=== PATIENT | male | born 1970 | race Caucasian/White ===

== ENCOUNTER 2024-12-31 08:55 | Outpatient (RCR) | payer OTHER, SELFPAY ==
[2024-12-31 09:07] LABS: % Basophils 0.9 % (0-2); % Eosinophils 2.1 % (0-6); % Immature Granulocytes 0.1 % (0-0.5); % Lymphocytes 20.4 % (20.5-51.1); % Monocytes 10.2 % (1.7-9.3); % Neutrophils 66.3 % (42.2-75.2); Absolute Basophils 0.1 10^3/uL (0-0.2); Absolute Eosinophils 0.2 10^3/uL (0-0.7); Absolute Lymphocytes 1.7 10^3/uL (1.2-3.4); Absolute Monocytes 0.8 10^3/uL (0.1-0.6); Absolute Neutrophils 5.4 10^3/uL (1.4-6.5); Hematocrit 56.5 % (39.0-52.0); Hemoglobin 19.4 g/dL (13.0-18.0); Mean Corp Hgb Conc. 34.3 g/dL (33.0-37.0); Mean Corpuscular Hgb 30.3 pg (27.0-31.0); Mean Corpuscular Volume 88.1 fL (80.0-94.0); Mean Platelet Volume 10.7 fL (7.4-10.4); Platelet Count 225 10^3/uL (130-400); Red Blood Cell Count 6.41 10^6/uL (4.70-6.10); Red Cell Dist. Width 13.5 % (11.5-14.5); White Blood Cell Count 8.2 10^3/uL (4.8-10.8)
[2024-12-31 09:14] VITALS: BP 175/109
[2024-12-31 09:23] VITALS: BP 156/100
[2024-12-31 09:45] VITALS: BP 158/98
[2024-12-31 09:56] VITALS: BP 148/98
== END 2024-12-31 23:59 | disposition home or self-care (01) ==
LOC: OID 08:55
PROVIDERS: ATTENDING PHYSICIAN Urology; FAMILY PHYSICIAN Family Medicine
DX: D75.1 Secondary polycythemia (principal)
CPT/HCPCS: 36415; 85025; 99195

== ENCOUNTER 2025-02-25 09:36 | Outpatient (RCR) | payer OTHER, SELFPAY ==
[2025-02-25 10:00] VITALS: BP 149/94
[2025-02-25 10:28] VITALS: BP 140/93
[2025-02-25 10:32] VITALS: BP 149/96
== END 2025-03-02 23:59 | disposition home or self-care (01) ==
LOC: OID 09:36
PROVIDERS: ATTENDING PHYSICIAN Urology; FAMILY PHYSICIAN Family Medicine
DX: D75.1 Secondary polycythemia (principal)
CPT/HCPCS: 99195

== ENCOUNTER 2025-03-12 06:43 | Day surgery (SDC) | payer OTHER, SELFPAY ==
[2025-02-25 09:10] LABS: Hematocrit 55.5 % (39.0-52.0); Hemoglobin 18.7 g/dL (13.0-18.0); Mean Corp Hgb Conc. 33.7 g/dL (33.0-37.0); Mean Corpuscular Volume 89.8 fL (80.0-94.0); Nucleated Red Blood Cells % 0 % (-); Platelet Count 363 10^3/uL (130-400); Red Cell Dist. Width 13.7 % (11.5-14.5)
[2025-02-25 11:01] LABS: Blood Urea Nitrogen 15 mg/dl (9-20); Calcium 10.2 mg/dl (8.4-10.2); Carbon Dioxide 29 mmol/L (22-30); Chloride 103 mmol/L (98-107); Glucose 90 mg/dl (70-99); Potassium 5.5 mmol/L (3.5-5.1); Sodium 139 mmol/L (135-145); eGFR > 60.00
--- NOTE | 2025-03-04 15:21 | PTCARENOTE ---
Patients 02/25 ECG abnormal- reviewed by Dr. Schreiber- no additional interventions required
--- NOTE | 2025-03-05 14:47 | PTCARENOTE ---
Berna in office made aware of K 5.5.
--- NOTE | 2025-03-10 13:54 | PTCARENOTE ---
Patients 02/25 potassium 5.5- reviewed by Candie- no additional interventions required
[2025-03-12] VITALS (13 sets, daily range): BP systolic 142–169; BP diastolic 65–111; BMI 25.7
[2025-03-12] MEDS: NORMOSOL-R/PLASMALYTE-A 1000 IV ×2 (10:26→19:25)
--- NOTE | 2025-03-12 17:36 | W.IMMPOSTOP ---
Surgical Immed Post Op Note
-
Primary Surgeon: Bayronfer
Assisting Surgeon: -
Pre-op Diagnosis: Prostate cancer
Post-op Diagnosis: same
Procedure Performed: RALP/PLND
Anesthesia Type: gen
Specimen / Cultures: prostate
Estimated Blood Loss: 50cc
Complications: none
Operative Findings: n/a
[2025-03-12 17:59] LABS: Hematocrit 49.2 % (39.0-52.0); Hemoglobin 16.6 g/dL (13.0-18.0)
[2025-03-12 18:29] LABS: Blood Urea Nitrogen 13 mg/dl (9-20); Calcium 8.9 mg/dl (8.4-10.2); Carbon Dioxide 24 mmol/L (22-30); Chloride 103 mmol/L (98-107); Estimated Creatinine Clearance 85 ml/min; Glucose 162 mg/dl (70-99); Potassium 4.8 mmol/L (3.5-5.1); Sodium 136 mmol/L (135-145); eGFR > 60.00
--- NOTE | 2025-03-12 18:35 | PTCARENOTE ---
Pt arrived to 2S in bed. Full assessment completed. Pt A+Ox3, drowsy but easily arouses to verbal stimuli. Lungs diminished to auscultation, pt with shallow breaths. Heart regular, + DP and radial pulses B/L. Abdomen soft, tender to palpation,
hypoactive. Pt with indwelling urinary catheter, pink tinged urine draining, catheter clean and intact. Abdominal incisions C/D/I, glued and XAVIER. Bed locked and in the lowest position, safety maintained. Pt educated to carlie for assistance with
ambulation, verbalized understanding. Oriented to room and call flannery, family at bedside.
[2025-03-12] MEDS: LOVENOX 40 MG SC (19:26)
[2025-03-12] MEDS: TORADOL 15 MG IV ×2 (19:26→23:18)
[2025-03-12] MEDS: SENOKOT 17.2 MG PO (19:26)
[2025-03-12] MEDS: PRAVACHOL 10 MG PO (21:29)
[2025-03-13] MEDS: TYLENOL 650 MG PO (01:21)
[2025-03-13] MEDS: NORMOSOL-R/PLASMALYTE-A 1000 IV (02:50)
[2025-03-13 03:00] VITALS: BP 135/95
[2025-03-13] MEDS: DETROL LA 4 MG PO (04:43)
[2025-03-13] MEDS: MORPHINE SULFATE 4 MG IV ×2 (04:53→08:10)
[2025-03-13] MEDS: TORADOL 15 MG IV ×4 (05:18→23:22)
[2025-03-13] MEDS: VALIUM INJECTION 5 MG IV (05:30)
--- NOTE | 2025-03-13 05:39 | PTCARENOTE ---
Addendum entered by Korina Millard RN 03/13/25 05:40:
pt sat up in bed and started experiencing 10/10 lower abd pain with urine looking dark red. Administered PRN detrol at 0443. Irrigated with 10cc of sterile 0.9 NaCl and met resistance. Irrigated again with 30cc, reattached bag with minimal output.
Pt still extremely uncomfortable. Administered PRN morphine at 0453.
Rechecked pt at 0502 still with minimal to no urine output in salazar bag/tubing and still uncomfortable. TT Juan Pablo and instructed to vigorously irrigate with larger volumes and 1x IV valium dose ordered. Scheduled IV toradol administered at
0518. IV valium administered at 0530.
Irrigated at 0535 with 100cc of sterile Nacl and got 100cc returned. Urine color light pink. Reattached to salazar bag. Pt feeling more comfortable. Will continue to monitor.
Original Note:
pt sat up in bed and started experiencing 10/10 lower abdominal pain with urine looking dark red. Administered PRN detrol at 0443.
Irrigated with 10cc of sterile 0.9 NaCl and met resistance. Irrigated again with 30cc and urine was trickling out of catheter.
I rehooked up the bag and there is very little output. Pt extremely uncomfortable. I did administer 4mg of IV morphine at 0453. Pt saying pain is still present. Thank
[2025-03-13 07:20] VITALS: BP 138/78
[2025-03-13 08:06] LABS: Hematocrit 39.1 % (39.0-52.0); Hemoglobin 13.3 g/dL (13.0-18.0); Mean Corp Hgb Conc. 34.0 g/dL (33.0-37.0); Mean Corpuscular Volume 89.9 fL (80.0-94.0); Platelet Count 364 10^3/uL (130-400); Red Cell Dist. Width 13.5 % (11.5-14.5)
--- NOTE | 2025-03-13 08:38 | W.PN.URO.CBU ---
Today's Communication / Plan
-
Pain control
Reg diet
OOB if able
Assessment / Plan
-
54M with prostate cancer s/p RALP/PLND
- Significant abdominal pain/bladder spasms overnight
- Unclear if salazar drainage was an issue but seemed to irrigate okay overnight - now draining well
- Continue PRN pain control
- Okay to continue diet - no nausea and patient asking about eating despite pain
- Trend vitsls and symptoms this AM
Diagnosis
-
Date of Service: March 13, 2025
-
Patient Diagnosis:
Prostate cancer
Post Op Day: 1 s/p RALP/PLND
Subjective
-
Significant abdominal pain and bladder spasms overnight
Catheter was flushed without difficulty and drained what was instilled
Still with significant pain when sitting up this morning
Objective
-
Vital Signs
Temp Pulse Resp BP Pulse Ox
98.8 F 107 18 135/95 98
03/13/25 03:00 03/13/25 03:00 03/13/25 03:00 03/13/25 03:00 03/13/25 03:00
Intake and Output
03/12/25 03/13/25 03/14/25
06:59 06:59 06:59
Intake Total 960 / 960
Output Total 995 / 995
Balance -35 / -35
Intake:
Oral fluids 720 / 720
IV fluids (Total) 100 / 100
normosol 100 / 100
Salazar intermittent irrigation 140 / 140
Output:
Urine, Salazar 995 / 995
Laboratory Results
03/13/25 07:42
Physical Exam
-
General - well developed, well nourished, uncomfortable
Chest - clear
Abdomen - soft, tender, nondistended. Some guarding with palpation. No rebound tenderness
Salazar in place, light pink urine output
Skin - warm & dry with no rash
Neuro - AOx3, no motor deficits
Extremities - no clubbing, no cyanosis, no edema
[2025-03-13 08:52] LABS: Blood Urea Nitrogen 16 mg/dl (9-20); Calcium 8.0 mg/dl (8.4-10.2); Carbon Dioxide 27 mmol/L (22-30); Chloride 103 mmol/L (98-107); Estimated Creatinine Clearance 78 ml/min; Glucose 165 mg/dl (70-99); Potassium 4.5 mmol/L (3.5-5.1); Sodium 134 mmol/L (135-145); eGFR > 60.00
[2025-03-13] MEDS: SENOKOT 17.2 MG PO ×2 (10:35→19:50)
[2025-03-13] MEDS: PERCOCET 5/325 1 TABLET PO (10:40)
[2025-03-13 11:25] VITALS: BP 131/80
--- NOTE | 2025-03-13 12:06 | CM ---
Addendum entered by Pippa Gardiner 03/13/25 14:54:
accepted by [facility] to follow at discharge.
Addendum entered by Pippa Gardiner 03/13/25 13:47:
CM spoke with patient and , following review of PAC data, referral sent to [facility], await confirmation of acceptance.
Original Note:
Patient seen at bedside on . Patient stated that he is in pain and nursing made aware. Patient also stated that he lives with his and family in a 2 story home with no past needs for VN or DME. Patient independent prior to admission of
ADL's and IADL's. Patient PCP is Dr. Franz and he uses the [facility] in [place]. Patient family not at bedside, family to assist per patient. CM will continue to follow for discharge planning needs.
Plan; home with VN vs home with no needs.
[2025-03-13 15:10] VITALS: BP 113/79
[2025-03-13] MEDS: LOVENOX 40 MG SC (17:59)
[2025-03-13] MEDS: PRAVACHOL 10 MG PO (21:44)
[2025-03-13 23:00] VITALS: BP 126/88
[2025-03-14] MEDS: TORADOL 15 MG IV ×2 (05:15→11:19)
[2025-03-14 06:32] LABS: Hematocrit 30.8 % (39.0-52.0); Hemoglobin 10.3 g/dL (13.0-18.0); Mean Corp Hgb Conc. 33.4 g/dL (33.0-37.0); Mean Corpuscular Volume 90.9 fL (80.0-94.0); Platelet Count 307 10^3/uL (130-400); Red Cell Dist. Width 13.8 % (11.5-14.5)
[2025-03-14 06:48] LABS: Blood Urea Nitrogen 20 mg/dl (9-20); Calcium 8.3 mg/dl (8.4-10.2); Carbon Dioxide 30 mmol/L (22-30); Chloride 102 mmol/L (98-107); Estimated Creatinine Clearance 72 ml/min; Glucose 116 mg/dl (70-99); Potassium 4.2 mmol/L (3.5-5.1); Sodium 135 mmol/L (135-145); eGFR > 60.00
[2025-03-14 07:25] VITALS: BP 165/94
[2025-03-14] MEDS: SENOKOT 17.2 MG PO (07:40)
--- NOTE | 2025-03-14 09:35 | W.PN.URO.CBU ---
Today's Communication / Plan
-
Fluid bolus
Repeat HGB
Trend vitals
Possible discharge this afternoon
Assessment / Plan
-
54M with prostate cancer s/p RALP/PLND
- Anemia - HGB drop more than expected with some tachycardia suggests some post op bleeding. Saline bolus this AM and encouraged fluid intake. Repeat HGB this afternoon.
- Significant abdominal pain/bladder spasms post op now resolved
- Continue PRN pain control
- Regular diet
- OOB/ambulate
- DVT ppx
Diagnosis
-
Date of Service: March 14, 2025
-
Patient Diagnosis:
Prostate cancer
Post Op Day: 2 s/p RALP/PLND
Subjective
-
Pain significantly improved
tolerating diet
ambulating
no cp/SOB
No dizziness
Catheter draining well
Objective
-
Vital Signs
Temp Pulse Resp BP Pulse Ox
98.5 F 107 16 165/94 98
03/14/25 07:25 03/14/25 07:25 03/14/25 07:25 03/14/25 07:25 03/14/25 07:25
Intake and Output
03/13/25 03/14/25 03/15/25
06:59 06:59 06:59
Intake Total 960 / 960 240 / 240
Output Total 995 / 995 112 / 1125
Balance -35 / -35 -885 / -885
Intake:
Oral fluids 720 / 720 240 / 240
IV fluids (Total) 100 / 100
normosol 100 / 100
Norris intermittent irrigation 140 / 140
Output:
Urine, Norris 995 / 995 1125 / 1125
Laboratory Results
03/14/25 05:53
Physical Exam
-
General - well developed, well nourished, no acute distress
Chest - clear, unlabored
Abdomen - soft, non-tender, non distended
Norris in place, dark yellow urine
Skin - warm & dry with no rash
Neuro - AOx3, no motor deficits
Extremities - no edema
Incision - clean, dry
Dressing - clean, dry, intact
[2025-03-14] MEDS: NSS 500 IV (09:43)
[2025-03-14 11:35] VITALS: BP 141/81
[2025-03-14 12:51] LABS: Hematocrit 30.1 % (39.0-52.0); Hemoglobin 10.5 g/dL (13.0-18.0)
--- NOTE | 2025-03-14 15:14 | CM ---
Pt dc today with [facility].
No additional support needs identifieid.
== END 2025-03-14 15:30 | disposition home or self-care (01) ==
LOC: SDS 06:43
PROVIDERS: ATTENDING PHYSICIAN Urology
DX: C61 Malignant neoplasm of prostate (principal)
CPT/HCPCS: 38571; 36415; 80048; 85014; 85018; 85025; 85027; 86850; 86900; 86901; 88305; 88307; 88309; 88331; 93005

== ENCOUNTER 2025-03-19 10:27 | Inpatient (IN) | payer OTHER, SELFPAY ==
[2025-03-18 23:33] VITALS: BP 162/98
[2025-03-19] VITALS (11 sets, daily range): BP systolic 110–142; BP diastolic 78–93; BMI 27.2; BMI 26.8
[2025-03-19 01:08] LABS: Hematocrit 32.8 % (39.0-52.0); Hemoglobin 11.1 g/dL (13.0-18.0); Mean Corp Hgb Conc. 33.8 g/dL (33.0-37.0); Mean Corpuscular Volume 89.6 fL (80.0-94.0); Nucleated Red Blood Cells % 0.2 % (-); Platelet Count 501 10^3/uL (130-400); Red Cell Dist. Width 13.6 % (11.5-14.5)
[2025-03-19 01:31] LABS: ALT (SGPT) 26 U/L (0-50); AST (SGOT) 20 U/L (17-59); Albumin 3.8 g/dl (3.5-5.0); Alkaline Phosphatase 48 U/L (38-126); Blood Urea Nitrogen 19 mg/dl (9-20); Calcium 9.3 mg/dl (8.4-10.2); Carbon Dioxide 27 mmol/L (22-30); Chloride 103 mmol/L (98-107); Estimated Creatinine Clearance 93 ml/min; Glucose 135 mg/dl (70-99); Potassium 4.7 mmol/L (3.5-5.1); Sodium 134 mmol/L (135-145); Total Protein 6.1 g/dl (6.3-8.2); eGFR > 60.00
[2025-03-19] MEDS: DILAUDID 1 MG IV (02:53)
[2025-03-19] MEDS: NSS 1000 IV ×3 (02:54→13:17)
[2025-03-19] MEDS: ZOFRAN 4 MG IV ×2 (04:37→06:26)
[2025-03-19] MEDS: PROTONIX IV 40 MG IV (04:37)
--- NOTE | 2025-03-19 04:45 | ED.GENMED ---
History of Present Illness
General
Chief Complaint: Post Operative Problem(s)
Source: patient and previous hospital records (Prostatectomy March 12, discharged to home March 14.)
Exam Limitations: none
Time Seen by Provider: 03/19/25 02:21
Nursing documentation reviewed up to this point in time: agreed with except (Patient complains of right lateral flank pain. Not left.)
History of Present Illness
History of Present Illness:
This is a 54-year-old gentleman with history of prostate cancer, he underwent robotic assisted laparoscopic radical prostatectomy as well as bilateral pelvic lymph node dissection March 12. On postop day 1 noted to have significant abdominal
pain/bladder spasms. He was hospitalized until March 14, due to hemoglobin dropping more than expected as well as some tachycardia suggestive of some postop bleeding. Hemoglobin stabilized to 10.5 on March 14. Norris catheter has been draining clear
to minimally blood-tinged urine. Patient states he was feeling fairly well at the beginning of the week but then yesterday developed some right lower quadrant to right lateral flank pain that is much worse with movement causing spasms of pain that
has gotten much worse today. Right lateral flank pain feels somewhat similar to previous episodes of renal colic. He denies fevers or chills, no nausea or vomiting, no diaphoresis. His appetite has been good. He has been moving his bowels
normally. Taking oxycodone as needed for pain.
Yesterday, Home health nurse noted a large dark purple ecchymotic patch right lateral flank and has marked the edges of the ecchymosis with a pen.
Past History
Past History
ED Past Medical History: Cancer (Prostate cancer), GERD, HTN, Hypercholesterolemia and Other (Kidney stones)
ED Past Surgical History: Orthopedic, Tonsilectomy and Urological (Radical prostatectomy with bilateral lymph node biopsy March 12, 2025)
Social History
Tobacco: Non-smoker
Alcohol: None
Personal:
Living: with family
Employment: Employed
Family History
Family History: Other (Noncontributory)
Phy Exam
Physical Exam
Physical Exam:
GENERAL: 54-year-old gentleman appears stated age, awake and alert, pleasant, appears in no acute distress. Lying Semi-Rivera's on stretcher, resistant to move. Multiple family members are present.
EYE: anicteric
NECK: Supple, nontender, no meningismus, no significant adenopathy.
ENT: oral mucosa is moist. No rhinorrhea.
CARDIAC: Regular rate and rhythm. no murmur.
LUNGS: Clear breath sounds bilaterally, no acute respiratory distress, no wheezes/rales/rhonchi
ABDOMEN: Soft, nondistended, there is a large dark purple ecchymotic area right lateral flank that extends to his right lower quadrant that is markedly tender to palpation. There is a pen marking along the edge of this ecchymotic patch. There is
been no progression of ecchymosis past the pen marking. There is no palpable heat nor erythema. Several lower abdominal surgical port sites are dry and intact. Norris catheter draining clear to minimally blood-tinged urine. Mild right posterior
lateral flank tenderness overlying dark purple ecchymotic area, normoactive BS.
NEUROLOGICAL: Alert and oriented x3, no focal neuro deficits.
SKIN: Warm and dry, normal color, skin intact. No rash.
MUSCULOSKELETAL: No C/C/E. peripheral pulses are full and equal b/l. No palpable tenderness.
PSYCH: Normal and appropriate interaction.
Course
Orders/Labs/Results
Orders:
Orders
03/19/25 00:56
Complete Blood Count/With Diff Urgent
Comment: .
Comprehensive Metabolic Panel Urgent
Comment: .
03/19/25 02:37
0.9% Sodium Chloride 1000 ml [Nss] 1,000 ml IV 250 mls/hr
HYDROmorphone [Dilaudid] 1 mg IV NOW STA
03/19/25 02:39
CT Abd/pelvis W Iv Cont Urgent
Comment:
Reason For Exam: RIGHT FLANK pain-s/p prostatect 03/12. Hematoma R
03/19/25 04:32
Ondansetron Injectable [Zofran] 4 mg .ROUTE .STK-MED ONE
Pantoprazole [Protonix IV] 40 mg .ROUTE .STK-MED ONE
03/19/25 04:37
Ondansetron Injectable [Zofran] 4 mg IV NOW STA
Pantoprazole [Protonix IV] 40 mg IV NOW STA
03/19/25 06:09
Ondansetron Injectable [Zofran] 4 mg IV NOW STA
Sucralfate Suspension [Carafate Suspension] 1 gm PO NOW STA
03/19/25 07:15
Abdomen Xray - 1 View [CR Abdomen - 1 View] Urgent
Comment:
Reason For Exam: right flank pain. concern for hydro on R
Abnormal Lab Results
03/19/25
00:56
WBC 16.1 H 10^3/uL
(4.8-10.8)
RBC 3.66 L 10^6/uL
(4.70-6.10)
Hgb 11.1 L g/dL
(13.0-18.0)
Hct 32.8 L %
(39.0-52.0)
Plt Count 501 H D 10^3/uL
(130-400)
Abs Immat Gran (auto) 0.2 H 10^3/uL
(0-0.05)
Absolute Neuts (auto) 13.3 H 10^3/uL
(1.4-6.5)
Absolute Lymphs (auto) 1.1 L 10^3/uL
(1.2-3.4)
Absolute Monos (auto) 1.3 H 10^3/uL
(0.1-0.6)
Immature Gran % 1.1 H %
(0-0.5)
Neutrophils % 82.4 H %
(42.2-75.2)
Lymphocytes % 6.7 L %
(20.5-51.1)
Sodium 134 L mmol/L
(135-145)
Glucose 135 H mg/dl
(70-99)
Total Bilirubin 1.5 H mg/dl
(0.2-1.3)
Total Protein 6.1 L g/dl
(6.3-8.2)
03/19/25 00:56
03/19/25 00:56
Vital Signs
Initial and Last Documented VS:
Initial Vital Signs
Temp Pulse Resp BP Pulse Ox
98.4 F 114 28 162/98 97
03/18/25 23:33 03/18/25 23:33 03/18/25 23:33 03/18/25 23:33 03/18/25 23:33
Last Documented Vital Signs
Temp Pulse Resp BP Pulse Ox
98.4 F 89 16 139/83 97
03/18/25 23:33 03/19/25 07:02 03/19/25 07:02 03/19/25 07:02 03/19/25 07:02
MDM/Problems Addressed
Differential Diagnosis Includes:
I highly suspect right flank pain is related to large ecchymotic area over right lateral flank to right lower quadrant that appears subcutaneous hematoma in nature, suspect related to recent surgery. Concern for retroperitoneal/intra-abdominal
hematoma.
Less likely ureteric stone.
He is afebrile and otherwise remains hemodynamically stable.
Labs thus far reveal mildly elevated white blood cell count of 16. Hemoglobin of 11.1 which has trended up from previous.
Chemistries are unremarkable. Normal renal function.
Will medicate for pain and check CT abdomen pelvis with IV contrast.
Chronic conditions affecting care: Previous abdomnial surgery (Recent prostatectomy) and Cancer
*Radiology
Radiology exam reviewed: radiology read reviewed
*Pulse Oximetry
SaO2: 94
Oxygen Mode of Delivery: Room air
Patient hypoxic: no
*Critical Care Note
Total Time (30-74mins, 75-104mins- exclusive of procedures): Not Applicable
Update Note
Update Note:
CAT scan shows mild right hydroureteronephrosis without obstructing stone. Bladder is decompressed.
Subcutaneous emphysema along the abdomen and chest likely secondary to recent surgery.
Small amount of fluid/blood products in the pelvis likely secondary to recent surgery.
Case discussed with Dr. Gonzalez.
He is now at bedside. Concerned about right hydronephrosis and requests flatplate of the abdomen and will plan to admit to urology service.
ED Attending Note
-
Portions of this chart may have been created with voice recognition software.� Occasional wrong word or��sound alike� substitutions may have occurred due to the inherent limitations of voice recognition software.
Discharge Plan
Departure
Patient Disposition: Admit
Date of Disposition: 03/19/25
Time of Disposition: 07:19
Admit to doctor: Carlos
Presentation/result/management discussed w/ accepting MD/DO: urology
Condition: Fair
Discharge Problem:
postoperative R hydronephrosis , postoperative R flank hematoma
Prescriptions:
No Action
pravastatin 10 mg Tablet
10 mg PO HS
testosterone enanthate 50 mg/0.5 mL Auto-Injector
50 mg SC QWEEK
cetirizine [Zyrtec] 10 mg Tablet
10 mg PO DAILY PRN (Reason: allergies)
famotidine [Pepcid] 20 mg Tablet
20 mg PO DAILY PRN (Reason: gerd)
oxycodone-acetaminophen 5-325 mg Tablet
1 tab PO Q4HPRN PRN (Reason: moderate pain) Qty: 15 0RF
Referrals:
Jerad Chen DO [Family Provider, Family Practice]
Interventions
Interventions:
*Risk Screen - Suicide Last Done: 03/18/25 23:33
*General Assessment Last Done: 03/19/25 01:15
*Neglect/Abuse Screening Last Done: 03/18/25 23:33
*ED- Fall Risk Assessment Last Done: 03/19/25 01:15
*ED COVID-19 Vaccine History Last Done: 03/19/25 01:15
XL-Vtefpc-Ovxrwlowis Assessment Last Done: 03/19/25 01:15
ED-Male Genitourinary Assessment Last Done: 03/19/25 01:23
ED-Skin Assessment Last Done: 03/19/25 01:15
Discharge Date and Time
Print Language: GREENLANDIC
[2025-03-19] MEDS: CARAFATE SUSPENSION 1 GM PO (06:26)
[2025-03-19] MEDS: DILAUDID 0.5 MG IV (07:40)
--- NOTE | 2025-03-19 08:52 | EDRN ---
ER physician also TT re- who will be the admission dr so I can get this man something to eat as there has been no update as yet from urology
[2025-03-19] MEDS: MOTRIN 400 MG PO ×2 (13:16→18:00)
--- NOTE | 2025-03-19 13:58 | TRANSFER ---
rec'd pt from ED via stretcher. pt AAOx3, VSS, c/o 610 abdomen/ flank pain. see MAR. plan of care ongoing.
[2025-03-19] MEDS: TYLENOL 650 MG PO ×2 (15:49→20:11)
[2025-03-19] MEDS: SENOKOT 17.2 MG PO (20:12)
[2025-03-19] MEDS: PRAVACHOL 10 MG PO (22:28)
[2025-03-19] MEDS: PEPCID 20 MG PO (22:28)
[2025-03-20] MEDS: NSS 1000 IV (00:31)
[2025-03-20] MEDS: TYLENOL PO (00:34)
[2025-03-20] MEDS: MOTRIN PO (03:00)
[2025-03-20] MEDS: TYLENOL 650 MG PO ×2 (03:01→08:42)
[2025-03-20 05:40] LABS: Hematocrit 30.1 % (39.0-52.0); Hemoglobin 9.9 g/dL (13.0-18.0); Mean Corp Hgb Conc. 32.9 g/dL (33.0-37.0); Mean Corpuscular Volume 92.0 fL (80.0-94.0); Platelet Count 457 10^3/uL (130-400); Red Cell Dist. Width 13.7 % (11.5-14.5)
[2025-03-20 06:05] LABS: Blood Urea Nitrogen 15 mg/dl (9-20); Calcium 8.4 mg/dl (8.4-10.2); Carbon Dioxide 29 mmol/L (22-30); Chloride 108 mmol/L (98-107); Estimated Creatinine Clearance 104 ml/min; Glucose 102 mg/dl (70-99); Potassium 4.8 mmol/L (3.5-5.1); Sodium 137 mmol/L (135-145); eGFR > 60.00
[2025-03-20] MEDS: MOTRIN 400 MG PO (06:22)
[2025-03-20 07:30] VITALS: BP 143/83
--- NOTE | 2025-03-20 07:36 | W.PN.URO.CBU ---
Today's Communication / Plan
-
Discharge
Assessment / Plan
-
54M s/p RALP/PLND 03/12
Readmitted for abdominal and flank pain
R hydronephrosis due to catheter balloon compression
Major relief of symptoms after balloon partially deflated and repositioned
labs and vitals stable
Discharge today
Follow up sunday for salazar removal and a post op with me the following week
Diagnosis
-
Date of Service: March 20, 2025
-
Patient Diagnosis:
prostate cancer
r flank pain
hydronephrosis
Post Op Day:
Subjective
-
pain greatly improved since yesterday AM
tolerating diet
ambulating
moving bowels
pain controlled on oral meds
Objective
-
Vital Signs
Temp Pulse Resp BP Pulse Ox
98.9 F 92 16 110/78 98
03/19/25 23:31 03/19/25 23:31 03/19/25 23:31 03/19/25 23:31 03/20/25 00:54
Intake and Output
03/19/25 03/20/25 03/21/25
06:59 06:59 06:59
Intake Total 2240 / 2240
Output Total 237 / 2375
Balance -135 / -135
Intake:
Oral fluids 720 / 720
IV fluids (Total) 1520 / 1520
Output:
Urine, Salazar 2374 / 5
Laboratory Results
03/20/25 05:22
03/20/25 05:22
Physical Exam
-
General - well developed, well nourished, no acute distress
Chest - clear bilaterally
Abdomen - soft, non-tender
Flank hematoma stable
Genitalia - clear urine
Skin - warm & dry with no rash
Neuro - AOx3, no motor deficits
Extremities - no clubbing, no cyanosis, no edema
Incision - clean, dry
Dressing - clean, dry, intact
[2025-03-20] MEDS: SENOKOT 17.2 MG PO (08:42)
--- NOTE | 2025-03-20 09:53 | CM ---
CM reviewed chart, patient seen beside with , initial assessment completed. Patient resides with his and two children in a two story home, two steps into garage. Patient denies use of DME, reports [facility] in past, does not feel he needs
[facility] at this time. Patient denies SNF hx. Patient confirms PCP Jerad Chen, pharmacy [facility], confirms prescription coverage. Patient to transport home. CM will continue to follow for all discharge planning needs.
Plan; home no needs
== END 2025-03-20 10:35 | disposition home or self-care (01) | DRG 699 ==
LOC: 4 EAST ACU 10:27
PROVIDERS: Emergency Medicine; ADMITTING PHYSICIAN Specialist; EMERGENCY PHYSICIAN Emergency Medicine; FAMILY PHYSICIAN Family Medicine
DX: N99.89 Other postprocedural complications and disorders of genitourinary system (principal); N13.30 Unspecified hydronephrosis; C61 Malignant neoplasm of prostate; E78.00 Pure hypercholesterolemia, unspecified; I10 Essential (primary) hypertension; N32.89 Other specified disorders of bladder; R31.9 Hematuria, unspecified; D72.829 Elevated white blood cell count, unspecified; K21.9 Gastro-esophageal reflux disease without esophagitis; Y84.6 Urinary catheterization as the cause of abnormal reaction of the patient, or of later complication, without mention of misadventure at the time of the procedure; Y73.2 Prosthetic and other implants, materials and accessory gastroenterology and urology devices associated with adverse incidents; S30.1XXA Contusion of abdominal wall, initial encounter; X58.XXXA Exposure to other specified factors, initial encounter; Y93.9 Activity, unspecified; Y92.9 Unspecified place or not applicable; Z87.442 Personal history of urinary calculi; Z90.79 Acquired absence of other genital organ(s)
CPT/HCPCS: 74018; 74177; 80048; 80053; 85025; 85027; Q9967

== ENCOUNTER 2025-05-26 09:42 | Outpatient (RCR) | payer OTHER, SELFPAY ==
--- NOTE | 2025-03-19 07:16 | W.PN.ADMIT ---
Progress Note - Admit
Progress Note - Admit
see dictated note
pt s/p robotic prostatectomy on
presents with large right flank hematoma and colicy right flank pain
no fevers/VSS/labs ok
CT shows expected subq air- no evid of urine leak or bowle injury- but mild right hydro
plan
admit for pain control and monitoring
[2025-05-26 10:09] LABS: Hematocrit 50.2 % (39.0-52.0); Hemoglobin 16.4 g/dL (13.0-18.0); Mean Corp Hgb Conc. 32.7 g/dL (33.0-37.0); Mean Corpuscular Volume 84.5 fL (80.0-94.0); Platelet Count 422 10^3/uL (130-400); Red Cell Dist. Width 15.3 % (11.5-14.5)
[2025-05-26 10:20] VITALS: BP 141/92
[2025-05-26 10:32] VITALS: BP 147/95
[2025-05-26 10:35] VITALS: BP 125/89
== END 2025-05-27 09:46 | disposition home or self-care (01) ==
LOC: OID 09:42
PROVIDERS: ATTENDING PHYSICIAN Urology; FAMILY PHYSICIAN Family Medicine
DX: D75.1 Secondary polycythemia (principal); R97.20 Elevated prostate specific antigen [PSA]; Z86.39 Personal history of other endocrine, nutritional and metabolic disease
CPT/HCPCS: 36415; 85025; 99195

== ENCOUNTER 2025-07-21 09:46 | Outpatient (RCR) | payer OTHER, SELFPAY ==
[2025-07-21 10:00] LABS: Hematocrit 49.1 % (39.0-52.0); Hemoglobin 15.9 g/dL (13.0-18.0); Mean Corp Hgb Conc. 32.4 g/dL (33.0-37.0); Mean Corpuscular Volume 81.7 fL (80.0-94.0); Platelet Count 433 10^3/uL (130-400); Red Cell Dist. Width 15.3 % (11.5-14.5)
== END 2025-08-02 23:59 | disposition home or self-care (01) ==
LOC: OID 09:46
PROVIDERS: ATTENDING PHYSICIAN Urology; FAMILY PHYSICIAN Family Medicine
DX: D75.1 Secondary polycythemia (principal); Z79.52 Long term (current) use of systemic steroids
CPT/HCPCS: 36415; 85025